=== PATIENT | female | born 1940 | race Caucasian/White ===

== ENCOUNTER 2019-07-23 12:04 | Inpatient (IN) | payer OTHER ==
--- NOTE | 2019-07-23 12:10 | PDOC ---
History of Present Illness - General Chief Complaint: Injury Stated Complaint: FELL Time Seen by Provider: 07/23/19 12:10 History Source: Patient Exam Limitations: No Limitations - History of Present Illness Initial Comments: 07/23/19 13:47 pt presents to the ED complaining of a three week history of progressively worsening l hip pain after fall three weeks ago. patient fell while at home-- sought no medical care at the time. Was able to ambulate after the injury, but has become progressively less able to ambulate secondary to pain. Today, she was unable to ambulate at all. Has been taking nothing for pain control. Has contusions to her face from the fall, but denies LOC. 07/23/19 13:49 Past History - Past Medical History Allergies/Adverse Reactions: Allergies Allergy/AdvReac Type Severity Reaction Status Date / Time No Known Allergies Allergy Verified 07/23/19 12:25 Home Medications: Ambulatory Orders Ursodiol [Actigal -] 300 mg PO BID 01/18/12 COPD: Yes GI Disorders: Yes - Immunization History Td Vaccination: No - Suicide/Smoking/Psychosocial Hx Smoking Status: Yes Smoking History: Former smoker Number of Cigarettes Smoked Daily: 0 Review of Systems - Review of Systems Able to Perform ROS?: Yes Is the patient limited Setswana proficient: No Constitutional: No: Symptoms Reported, See HPI, Chills, Diaphoresis, Fever, Loss of Appetite, Malaise, Night Sweats, Weakness, Weight Stable, Unintentional Wgt. Loss, Unexplained wgt Loss, Other HEENTM: No: Symptoms Reported, See HPI, Eye Pain, Blurred Vision, Tearing, Recent change in vision, Double Vision, Cataracts, Ear Pain, Ocular Prothesis, Ear Discharge, Nose Pain, Nose Congestion, Tinnitus, Nose Bleeding, Hearing Loss , Throat Pain, Throat Swelling, Mouth Pain, Dental Problems, Difficulty Swallowing, Mouth Swelling, Other Respiratory: No: Symptoms reported, See HPI, Cough, Orthopnea, Shortness of Breath, SOB with Exertion, SOB at Rest, Stridor, Wheezing, Productive cough, Hemoptysis, Other Cardiac (ROS): No: Symptoms Reported, See HPI, Chest Pain, Edema, Irregular Heart Rate, Lightheadedness, Palpitations, Syncope, Chest Tightness, Other ABD/GI: No: Symptoms Reported, See HPI, Abdominal Distended, Abd. Pain w/ defecation, Blood Streaked Bowels, Constipated, Diarrhea, Difficulty Swallowing , Nausea, Poor Appetite, Poor Fluid Intake, Rectal Bleeding, Vomiting, Indigestion, Abdominal cramping, Tarry Stools, Other Musculoskeletal: Yes: Back Pain, Joint Pain Integumentary: No: Symptoms Reported, See HPI, Bruising, Change in Color, Change in Hair/Nails, Dryness, Erythema, Flushing, Lesions, Lumps, Pallor, Pruritus, Rash, Sweating, Other Neurological: No: Symptoms reported, See HPI, Headache, Numbness, Paresthesia, Pre-Existing Deficit, Seizure, Tingling, Tremors, Weakness, Unsteady Gait, Ataxia, Dizziness, Other Psychiatric: No: Anxiety, Depression, Frequent Crying, Stressors, Sleep Pattern Change, Emotional Problems, Mood Swings, Change in Appetite, Other Endocrine: No: Symptoms Reported, See HPI, Excessive Sweating, Flushing, Intolerance to Cold, Intolerance to Heat, Increased Hunger, Increased Thirst, Increased Urine, Unexplained Weight Gain, Unexplained Weight Loss, Change in Weight, Other *Physical Exam - Physical Exam Comments: 07/23/19 13:53 gen: alert, NAD, cachectic HEENT: + healing ecchymosis on L side of face Neck: full ROM, no spinous process tenderness CV: rrr no m/r/g pulm: CTA b/l Abdomen: soft, non tender, non distended ext: no deformity or tenderness. Full ROM of LLE at hip, ankle and knee back; + scholiosis, + mild lumbar tenderness without deformity or step off ED Treatment Course - LABORATORY CBC & Chemistry Diagram: 07/23/19 13:30 07/23/19 13:30 Medical Decision Making - Medical Decision Making 07/23/19 13:56 Pt presents to the ED complaining of L hip and lower back pain after fall three weeks ago. Will check xrays to rule out occult fracture. IF negative and patient remains unable to walk, will check CT. Will admit for placement if patient is unable to ambulate. 07/23/19 17:31 patient is unable to ambulate on multiple attempts. Ct hip performed and is negative. Bilirubin is 4.8. Will check RUQ US. Will admit to medicine. *DC/Admit/Observation/Transfer Diagnosis at time of Disposition: Unable to walk Failure to thrive Qualifiers: Failure to thrive age range: in adult Qualified Code(s): R62.7 - Adult failure to thrive - Discharge Dispostion Condition at time of disposition: Good Decision to Admit order: Yes - Referrals Referrals: Himanshu Song MD [Primary Care Provider] - - Patient Instructions - Post Discharge Activity
[2019-07-23] MEDS ORDERED: morphine CARPU-JECT 2 MG/1 ML DISP.SYRIN IVPUSH ONE (12:53)
[2019-07-23] MEDS ORDERED: morphine SULFATE 4 MG/ML VIAL ONE (13:10)
[2019-07-23 13:40] LABS: HEMATOCRIT 33.7 % (32.4-45.2); HEMOGLOBIN 11.4 GM/dl (10.7-15.3); MCH 30.3 pg (25.7-33.7); MCHC 33.9 g/dl (32.0-36.0); MEAN CELL VOLUME 89.5 fl (80-96); MEAN PLT VOLUME 8.5 fl (7.5-11.1); PLATELET COUNT 302 K/MM3 (134-434); RBC 3.77 M/mm3 (3.60-5.2); RDW 14.9 % (11.6-15.6); WHITE BLOOD COUNT 7.8 K/mm3 (4.0-10.8)
[2019-07-23 13:47] LABS: ALBUMIN 2.5 g/dl (3.4-5.0); BILIRUBIN,TOTAL 4.8 mg/dl (0.2-1); CALCIUM 8.5 mg/dl (8.5-10); CREATININE 0.5 mg/dl (0.55-1.3); POTASSIUM 3.5 mmol/L (3.5-5.1); TOT PROT 6.4 g/dl (6.4-8.2)
[2019-07-23 14:21] LABS: ANISOCYTOSIS FEW
--- NOTE | 2019-07-23 21:10 | HP ---
CHIEF COMPLAINT: post fall weakness, difficultly with ambulation PCP: Dr. Loco HISTORY OF PRESENT ILLNESS: 79 year old female with PMHX of RA, COPD, primary biliary cholangitis, Essential tremors, Sjogrens syndrome arrived to ED with complain of progressive weakness, pain to left hip radiating to left lower extremity pain /. Pain and weakness started three weeks ago post fall. Patient fell at home did not seek medical care at time, now in ED due to progressive weakness and difficulty walking. Patient noted with contusion on left side of forehead, and orbital area. Patient denies headache, dizziness, sob/cp, denies change in vision. No acute N/v, heartburn, constipation, diarrhea noted. ER course was notable for: (1) in ED given Morphine x1 (2) lewis inserted, c/o retention, UA negative, follow urine culture (3) Head Ct, left hip, lumbar, left knee/hip all scans negative Recent Travel:no PAST MEDICAL HISTORY: RA of spine, COPD, Primary biliary cholangitis, Essential tremors, Sjogens syndrome PAST SURGICAL HISTORY: denies Social History: Smoking:quite 15-20 years ago Alcohol:no Drugs: no Family History: denies Allergies: No Known Allergies Allergy (Verified 07/23/19 12:25) HOME MEDICATIONS: Home Medications Medication Instructions Recorded Ursodiol [Actigal -] 300 mg PO BID 01/18/12 REVIEW OF SYSTEMS CONSTITUTIONAL: + generalized weakness, contusion on left side of forehead Absent: fever, chills, diaphoresis, loss of appetite, weight change HEENT:Absent: rhinorrhea, nasal congestion,throat swelling, difficulty swallowing, mouth swelling, ear pain, eye pain, visual changes CARDIOVASCULAR: Absent: chest pain, syncope, palpitations, irregular heart rate , lightheadedness, peripheral edema RESPIRATORY: Absent: cough, shortness of breath, dyspnea with exertion, orthopnea, wheezing, stridor, hemoptysis GASTROINTESTINAL:Absent: abdominal pain, abdominal distension, nausea, vomiting , diarrhea, constipation, melena, hematochezia GENITOURINARY: Absent: dysuria, frequency, urgency, hesitancy, hematuria, flank pain, genital pain MUSCULOSKELETAL:left hip pain radiating to left lower extremity SKIN: + contusion, bruising to left orbital and forehead Absent: rash, itching, pallor NEUROLOGIC: + generalized weakness Absent: headache, focal weakness or paresthesias, dizziness, mental status changes, bladder or bowel incontinence PSYCHIATRIC: Absent: anxiety, depression, suicidal or homicidal ideation, hallucinations. PHYSICAL EXAMINATION Vital Signs - 24 hr 07/23/19 07/23/19 12:06 18:30 Temperature 98.0 F 98.0 F Pulse Rate 75 Pulse Rate [ 75 Left Radial] Respiratory 18 20 Rate Blood Pressure 155/76 Blood Pressure 145/69 [Right Arm] O2 Sat by Pulse 97 98 Oximetry (%) GENERAL: Awake, alert, and fully oriented, in no acute distress. HEENT: NC/AT, EOMI, No JVD LUNGS: Breath sounds equal, clear to auscultation bilaterally. No wheezes, and no crackles. HEART: Regular rate and rhythm, normal S1 and S2 without murmur, rub or gallop. ABDOMEN: Soft, nontender, not distended, normoactive bowel sounds, no guarding, no rebound, no masses. MUSCULOSKELETAL: + scholiosis, + mild lumbar tenderness, LE limited, UE ROM intact NEUROLOGICAL: Cranial nerves II-XII intact. Normal speech. Normal gait. PSYCHIATRIC: Cooperative. Good eye contact. Appropriate mood and affect. SKIN: Warm, dry, normal turgor Laboratory Results - last 24 hr 07/23/19 07/23/19 07/23/19 13:30 13:30 13:30 WBC 7.8 RBC 3.77 Hgb 11.4 Hct 33.7 MCV 89.5 MCH 30.3 MCHC 33.9 RDW 14.9 Plt Count 302 MPV 8.5 Neutrophils % No Result Required. Neutrophils % (Manual) 90.0 H Lymphocytes % No Result Required. Lymphocytes % (Manual) 6.0 L Monocytes % (Manual) 4 Hypochromia Trace Anisocytosis Few Sodium 137 Potassium 3.5 Chloride 100 Carbon Dioxide 27 Anion Gap 10 BUN 18.0 Creatinine 0.5 L Est GFR (CKD-EPI)AfAm 106.69 Est GFR (CKD-EPI)NonAf 92.05 Random Glucose 95 Calcium 8.5 Total Bilirubin 4.8 H AST 84 H ALT 76 H Alkaline Phosphatase 895 H Creatine Kinase 43 Troponin I 0.03 Total Protein 6.4 Albumin 2.5 L Urine Color Urine Appearance Urine pH Urine Protein Urine Glucose (UA) Urine Ketones Urine Blood Urine Nitrite Urine Bilirubin Urine Urobilinogen Ur Leukocyte Esterase 07/23/19 18:20 WBC RBC Hgb Hct MCV MCH MCHC RDW Plt Count MPV Neutrophils % Neutrophils % (Manual) Lymphocytes % Lymphocytes % (Manual) Monocytes % (Manual) Hypochromia Anisocytosis Sodium Potassium Chloride Carbon Dioxide Anion Gap BUN Creatinine Est GFR (CKD-EPI)AfAm Est GFR (CKD-EPI)NonAf Random Glucose Calcium Total Bilirubin AST ALT Alkaline Phosphatase Creatine Kinase Troponin I Total Protein Albumin Urine Color Yellow Urine Appearance Clear Urine pH 7.0 Urine Protein Negative Urine Glucose (UA) Negative Urine Ketones Negative Urine Blood Negative Urine Nitrite Negative Urine Bilirubin 1+ H Urine Urobilinogen 4.0 e.u/dl H Ur Leukocyte Esterase Negative ASSESSMENT/PLAN: 79 year old female arrived to ED with complain of progressive weakness, pain to left hip radiating to left lower extremity (pain 7/10). Pain and weakness started three weeks ago post fall. #Post fall # scalp hematoma #Left hip pain #Failure to thrive # Elevated LFTs h/o of primary biliary cholangitis - Head CT: no acute bleed, scalp hematoma no acute fx - left hip/ pelvis no acute pathology - left knee no acute pathology - lumbar spine xr: degenerative changes, no acute fx - CT left hip: moderate arthritis no fx - follow up PT/OT - Dietary follow up - elevated LFTs, bilirubin likely due to primary biliary cholangitis currently on ursodiol 300mg BID - follow up Abd US official read - trend LFTs in Am - consider rehab placement for continues strengthen and ambulation # RA - pain managment # COPD - monitor spo2 if needed give o2 PRN Problem List - Problem (1) Status post fall Code(s): Z91.81 - HISTORY OF FALLING (2) Left hip pain Code(s): M25.552 - PAIN IN LEFT HIP (3) Unable to walk Code(s): R26.2 - DIFFICULTY IN WALKING, NOT ELSEWHERE CLASSIFIED (4) Hematoma of scalp Code(s): S00.03XA - CONTUSION OF SCALP, INITIAL ENCOUNTER (5) Failure to thrive Code(s): OPQ7553 - Qualifiers: Failure to thrive age range: in adult Qualified Code(s): R62.7 - Adult failure to thrive (6) COPD (chronic obstructive pulmonary disease) Code(s): J44.9 - CHRONIC OBSTRUCTIVE PULMONARY DISEASE, UNSPECIFIED (7) Rheumatoid arteritis Code(s): M05.20 - RHEUMATOID VASCULITIS WITH RHEUMATOID ARTHRITIS OF [facility] (8) Essential tremor Code(s): G25.0 - ESSENTIAL TREMOR (9) Primary biliary cholangitis Code(s): K74.3 - PRIMARY BILIARY CIRRHOSIS (10) Sjogrens syndrome Code(s): M35.00 - SICCA SYNDROME, UNSPECIFIED Visit type - Emergency Visit Emergency Visit: Yes ED Registration Date: 07/23/19 Care time: The patient presented to the Emergency Department on the above date and was hospitalized for further evaluation of their emergent condition. - New Patient This patient is new to me today: Yes Date on this admission: 07/23/19 - Critical Care Critical Care patient: No
[2019-07-23] MEDS: HEPARIN NA (PORCINE) 5,000 UNITS/ML 1ML VIAL SQ SCH (22:16)
[2019-07-23] MEDS: URSODIOL 300 MG CAPSULE PO SCH (22:18)
--- NOTE | 2019-07-24 08:53 | PN ---
Physical Exam: SUBJECTIVE: Patient seen and examined. PT at bedside with [employer] school best friends. State pain is her hamstring and the lateral side of her left thigh. Spoke with patient about Advanced Directive. Pt stated she would do when her sons is with her tomorrow, but for now she wants to be a full code. OBJECTIVE: GENERAL: Awake, alert, and fully oriented, in no acute distress. HEENT: NC/AT, EOMI, No JVD LUNGS: Breath sounds equal, clear to auscultation bilaterally. No wheezes, and no crackles. HEART: Regular rate and rhythm, normal S1 and S2 ABDOMEN: Soft, nontender, not distended, normoactive bowel sounds, no guarding, no rebound, no masses. : East in place[place] MUSCULOSKELETAL: + scholiosis, + mild lumbar tenderness, LE limited, UE ROM intact NEUROLOGICAL: Alert and Oriented. PSYCHIATRIC: Cooperative. Good eye contact. Appropriate mood and affect. SKIN: Warm, dry, normal turgor Vital Signs Period Temp Pulse Resp BP Sys/Og Pulse Ox Last 24 Hr 97.9 F-98.0 F 70-79 17-20 109-155/51-76 95-100 Laboratory Results - last 24 hr 07/23/19 07/23/19 07/23/19 13:30 13:30 13:30 WBC 7.8 RBC 3.77 Hgb 11.4 Hct 33.7 MCV 89.5 MCH 30.3 MCHC 33.9 RDW 14.9 Plt Count 302 MPV 8.5 Neutrophils % No Result Required. Neutrophils % (Manual) 90.0 H Lymphocytes % No Result Required. Lymphocytes % (Manual) 6.0 L Monocytes % (Manual) 4 Hypochromia Trace Anisocytosis Few Sodium 137 Potassium 3.5 Chloride 100 Carbon Dioxide 27 Anion Gap 10 BUN 18.0 Creatinine 0.5 L Est GFR (CKD-EPI)AfAm 106.69 Est GFR (CKD-EPI)NonAf 92.05 Random Glucose 95 Calcium 8.5 Total Bilirubin 4.8 H AST 84 H ALT 76 H Alkaline Phosphatase 895 H Creatine Kinase 43 Troponin I 0.03 Total Protein 6.4 Albumin 2.5 L Urine Color Urine Appearance Urine pH Urine Protein Urine Glucose (UA) Urine Ketones Urine Blood Urine Nitrite Urine Bilirubin Urine Urobilinogen Ur Leukocyte Esterase 07/23/19 18:20 WBC RBC Hgb Hct MCV MCH MCHC RDW Plt Count MPV Neutrophils % Neutrophils % (Manual) Lymphocytes % Lymphocytes % (Manual) Monocytes % (Manual) Hypochromia Anisocytosis Sodium Potassium Chloride Carbon Dioxide Anion Gap BUN Creatinine Est GFR (CKD-EPI)AfAm Est GFR (CKD-EPI)NonAf Random Glucose Calcium Total Bilirubin AST ALT Alkaline Phosphatase Creatine Kinase Troponin I Total Protein Albumin Urine Color Yellow Urine Appearance Clear Urine pH 7.0 Urine Protein Negative Urine Glucose (UA) Negative Urine Ketones Negative Urine Blood Negative Urine Nitrite Negative Urine Bilirubin 1+ H Urine Urobilinogen 4.0 e.u/dl H Ur Leukocyte Esterase Negative Active Medications Generic Name Dose Route Start Last Admin Trade Name Freq PRN Reason Stop Dose Admin Acetaminophen 650 mg 07/23/19 21:01 Tylenol - PO Q4H PRN PAIN Heparin Sodium (Porcine) 5,000 unit 07/23/19 22:00 07/23/19 22:16 Heparin - SQ 5,000 unit BID REANNA Administration Ursodiol 300 mg 07/23/19 22:00 07/23/19 22:18 Actigal - PO 300 mg BID REANNA Administration ASSESSMENT/PLAN 79 year old female arrived to ED with complain of progressive weakness, pain to left hip radiating to left lower extremity (pain 7/10). Pain and weakness started three weeks ago post fall. Left Hamstring/thigh Pain Failure to thrive Elevated LFTs H/O of primary biliary cholangitis Post fall /Scalp hematoma Head CT: no acute bleed, scalp hematoma no acute fx - left hip/ pelvis no acute pathology - left knee no acute pathology - lumbar spine xr: degenerative changes, no acute fx - CT left hip: moderate arthritis no fx - follow up PT/OT - Dietary follow up - elevated LFTs, bilirubin likely due to primary biliary cholangitis currently on ursodiol 300mg BID - follow up Abd US official read - trend LFTs in - consider rehab placement RA - pain managment COPD -monitor spo2 if needed give o2 PRN Visit type - Emergency Visit Emergency Visit: Yes ED Registration Date: 07/23/19 Care time: The patient presented to the Emergency Department on the above date and was hospitalized for further evaluation of their emergent condition. - New Patient This patient is new to me today: Yes Date on this admission: 07/24/19 - Critical Care Critical Care patient: No
[2019-07-24 09:30] LABS: HEMATOCRIT 31.2 % (32.4-45.2); HEMOGLOBIN 10.6 GM/dl (10.7-15.3); MCH 29.9 pg (25.7-33.7); MEAN CELL VOLUME 88.1 fl (80-96); MEAN PLT VOLUME 8.7 fl (7.5-11.1); PLATELET COUNT 282 K/MM3 (134-434); RBC 3.54 M/mm3 (3.60-5.2); RDW 14.3 % (11.6-15.6); WHITE BLOOD COUNT 7.8 K/mm3 (4.0-10.8)
[2019-07-24 09:42] LABS: ALBUMIN 2.3 g/dl (3.4-5.0); BILIRUBIN,TOTAL 3.7 mg/dl (0.2-1); CREATININE 0.6 mg/dl (0.55-1.3); POTASSIUM 3.4 mmol/L (3.5-5.1); TOT PROT 5.6 g/dl (6.4-8.2)
[2019-07-24] MEDS: ACETAMINOPHEN 325 MG TABLET (FP) PO PRN (09:45)
[2019-07-24] MEDS: URSODIOL 300 MG CAPSULE PO SCH ×2 (09:45→21:54)
[2019-07-24] MEDS: HEPARIN NA (PORCINE) 5,000 UNITS/ML 1ML VIAL SQ SCH ×2 (09:46→21:54)
[2019-07-24 14:54] VITALS: BMI 13.4
--- NOTE | 2019-07-24 17:12 | EKG ---
Test Reason : Blood Pressure : / mmHG Vent. Rate : 070 BPM Atrial Rate : 070 BPM P-R Int : 176 ms QRS Dur : 080 ms QT Int : 452 ms P-R-T Axes : 082 -22 077 degrees QTc Int : 488 ms NORMAL SINUS RHYTHM LEFT ATRIAL ENLARGEMENT POSSIBLE ANTERIOR INFARCT , AGE UNDETERMINED ABNORMAL ECG NO PREVIOUS ECGS AVAILABLE Confirmed by CHRIS BYRNE MD ([id number]) on 07/24/2019 5:12:27 PM Referred By: DR TORRES Confirmed By:CHRIS BYRNE MD
[2019-07-25] MEDS: ACETAMINOPHEN 325 MG TABLET (FP) PO PRN (01:02)
[2019-07-25] MEDS ORDERED: PT OWN MED DRAWER 7, Y5N ONE ×2 (09:35→20:55)
[2019-07-25] MEDS: HEPARIN NA (PORCINE) 5,000 UNITS/ML 1ML VIAL SQ SCH ×2 (09:40→21:28)
[2019-07-25] MEDS: URSODIOL 300 MG CAPSULE PO SCH ×2 (09:40→21:28)
[2019-07-25] MEDS: POLYETHYLENE GLYCOL 3350 119 GM BTL PO SCH ×2 (10:30→21:29)
[2019-07-25 10:40] LABS: HEMATOCRIT 35.2 % (32.4-45.2); HEMOGLOBIN 11.8 GM/dl (10.7-15.3); MCH 29.9 pg (25.7-33.7); MCHC 33.5 g/dl (32.0-36.0); MEAN CELL VOLUME 89.4 fl (80-96); MEAN PLT VOLUME 8.4 fl (7.5-11.1); PLATELET COUNT 357 K/MM3 (134-434); RBC 3.93 M/mm3 (3.60-5.2); RDW 14.8 % (11.6-15.6); WHITE BLOOD COUNT 8.7 K/mm3 (4.0-10.8)
[2019-07-25 10:51] LABS: ALBUMIN 2.4 g/dl (3.4-5.0); BILIRUBIN,DIRECT 2.5 mg/dL (0.0-0.2); BILIRUBIN,TOTAL 4.1 mg/dl (0.2-1); CALCIUM 8.3 mg/dl (8.5-10); CREATININE 0.7 mg/dl (0.55-1.3); POTASSIUM 3.1 mmol/L (3.5-5.1); TOT PROT 6.1 g/dl (6.4-8.2)
[2019-07-25 11:29] LABS: PLATELET ESTIMATE ADEQUATE
[2019-07-25] MEDS: POTASSIUM CHLORIDE TABS 20 MEQ TABLET.ER (FP) PO SCH ×2 (12:24→17:54)
--- NOTE | 2019-07-25 16:28 | PN ---
Physical Exam: SUBJECTIVE: Patient seen and examined oob to chair. Son and friend present. OBJECTIVE: Vital Signs Period Temp Pulse Resp BP Sys/Og Pulse Ox Last 24 Hr 97.4 F-98.2 F 62-88 17- 107-138/51-60 95-99 GENERAL: The patient is awake, alert, and fully oriented, in no acute distress. HEAD: Resolving ecchymosis left forehead LUNGS: Breath sounds equal, clear to auscultation bilaterally, no wheezes, no crackles, no accessory muscle use. HEART: Regular rate and rhythm, S1, S2 ABDOMEN: Soft, nontender, nondistended EXTREMITIES: 2+ pulses, warm, well-perfused, no edema. NEUROLOGICAL: Cranial nerves II through XII grossly intact. Normal speech, gait not observed. Laboratory Results - last 24 hr 07/25/19 07/25/19 10:15 10:15 WBC 8.7 RBC 3.93 Hgb 11.8 Hct 35.2 MCV 89.4 MCH 29.9 MCHC 33.5 RDW 14.8 Plt Count 357 MPV 8.4 Neutrophils % No Result Required. Neutrophils % (Manual) 78.0 Band Neutrophils % 1.0 Lymphocytes % No Result Required. Lymphocytes % (Manual) 12.0 Monocytes % (Manual) 7 Eosinophils % (Manual) 2.0 Platelet Estimate Adequate Sodium 138 Potassium 3.1 L Chloride 101 Carbon Dioxide 29 Anion Gap 8 BUN 19.0 H Creatinine 0.7 Est GFR (CKD-EPI)AfAm 95.51 Est GFR (CKD-EPI)NonAf 82.41 Random Glucose 101 Calcium 8.3 L Magnesium 2.0 Total Bilirubin 4.1 H Direct Bilirubin 2.5 H AST 95 H ALT 80 H Alkaline Phosphatase 852 H D Total Protein 6.1 L Albumin 2.4 L Active Medications Generic Name Dose Route Start Last Admin Trade Name Freq PRN Reason Stop Dose Admin Acetaminophen 650 mg 07/23/19 21:01 07/25/19 01:02 Tylenol - PO 650 mg Q4H PRN Administration PAIN Heparin Sodium (Porcine) 5,000 unit 07/23/19 22:00 07/25/19 09:40 Heparin - SQ 5,000 unit BID REANNA Administration Polyethylene Glycol 17 gm 07/25/19 10:15 07/25/19 10:30 Miralax (For Daily Use) - PO 17 gm BID REANNA Administration Potassium Chloride 40 meq 07/25/19 11:45 07/25/19 12:24 K-Dur - PO 07/25/19 17:46 40 meq Q6H REANNA Administration Senna/Docusate Sodium 2 tablet 07/25/19 22:00 Pericolace - PO 07/26/19 10:04 HS REANNA Ursodiol 300 mg 07/23/19 22:00 07/25/19 09:40 Actigal - PO 300 mg BID REANNA Administration ASSESSMENT/PLAN 79 year-old female with a PMH significant for primary biliary cholangitis, essential tremors, Sjogrens, RA, and COPD. Admitted s/p fall x 3 weeks ago with left hip pain and progressive weakness. Left hip pain s/p fall x 3 weeks --all imaging negative for fracture/acute process --pain presently well-managed with Tylenol Primary biliary cholangitis Dilated CBD Dilated pancreatic duct --follows with Dr. Ramos Loja, [facility] [place], [phone]; FAX [phone] --discussed case with Dr. Loja; bilirubin and transaminase levels are at about same levels as seen on last bloodwork at his office 06/08/19 --US here shows CBD 11mm; per Dr. Loja, most recent imaging at [facility] was 10cm , no significant change --US here shows dilated pancreatic duct; per Dr. Loja, this is a new finding ; would be helpful to get MRCP done during this hospitalization, but if not possible, can be done as an outpatient --discussed MRCP with patient, she absolutely refuses to have a closed MRI --patient will need to follow up with Dr. Loja as outpatient --continue ursodiol, hydroxyzine, cholestyramine Hypokalemia --repleted Essential tremors --on no medication Sjogrens --not on meds Rheumatoid arthritis --not on meds COPD --stable, not on meds BMI 13.5 FEN Fluids: PO intake adequate Electrolytes: replete as indicated Nutrition: regular diet; Ensure Enlive BID DVT prophylaxis: subq heparin Physical therapy Dispo: continues to require inpatient care. Full code. Plan to go to short-term rehab tomorrow. Visit type - Emergency Visit Emergency Visit: Yes ED Registration Date: 07/23/19 Care time: The patient presented to the Emergency Department on the above date and was hospitalized for further evaluation of their emergent condition. - New Patient This patient is new to me today: Yes Date on this admission: 07/25/19 - Critical Care Critical Care patient: No
[2019-07-25] MEDS: ATORVASTATIN CA 10 MG TABLET (FP) PO SCH (21:27)
[2019-07-25] MEDS: hydrOXYzine HCL 25 MG TABLET (FP) PO SCH (21:27)
[2019-07-25] MEDS: clonazePAM 0.5 MG TABLET PO PRN (21:33)
[2019-07-25] MEDS ORDERED: CHOLESTYRAMINE/SUCROSE 4 GM PACKET PO SCH (22:00)
[2019-07-25] MEDS ORDERED: SENNOSIDES/DOCUSATE COMBO (SENNA PLUS) TABLET (UD) PO SCH (22:00)
[2019-07-26] MEDS: CHOLESTYRAMINE/ASPARTAME 4 GM PACKET PO SCH ×3 (00:57→21:44)
--- NOTE | 2019-07-26 07:35 | DS ---
Physical Exam: SUBJECTIVE: Patient seen and examined oob to chair. Good appetite. Voices no complaints. Willing to try closed MRI today. OBJECTIVE: Vital Signs Period Temp Pulse Resp BP Sys/Og Pulse Ox Last 24 Hr 97.8 F-98.2 F 67-88 17-18 108-141/47-61 97-98 PHYSICAL EXAM GENERAL: The patient is awake, alert, and fully oriented, in no acute distress. HEAD: Resolving ecchymosis left forehead LUNGS: CTA HEART: Regular rate and rhythm, S1, S2 ABDOMEN: Tympanic, protuberant EXTREMITIES: 2+ pulses, warm, well-perfused, no edema. NEUROLOGICAL: Cranial nerves II through XII grossly intact. Normal speech, gait not observed. LABS Laboratory Results - last 24 hr 07/25/19 07/25/19 10:15 10:15 WBC 8.7 RBC 3.93 Hgb 11.8 Hct 35.2 MCV 89.4 MCH 29.9 MCHC 33.5 RDW 14.8 Plt Count 357 MPV 8.4 Neutrophils % No Result Required. Neutrophils % (Manual) 78.0 Band Neutrophils % 1.0 Lymphocytes % No Result Required. Lymphocytes % (Manual) 12.0 Monocytes % (Manual) 7 Eosinophils % (Manual) 2.0 Platelet Estimate Adequate Sodium 138 Potassium 3.1 L Chloride 101 Carbon Dioxide 29 Anion Gap 8 BUN 19.0 H Creatinine 0.7 Est GFR (CKD-EPI)AfAm 95.51 Est GFR (CKD-EPI)NonAf 82.41 Random Glucose 101 Calcium 8.3 L Magnesium 2.0 Total Bilirubin 4.1 H Direct Bilirubin 2.5 H AST 95 H ALT 80 H Alkaline Phosphatase 852 H D Total Protein 6.1 L Albumin 2.4 L HOSPITAL COURSE: Date of Admission:07/23/19 Date of Discharge: 07/26/19 Pre hospital course 79 year-old female with PMH significant for primary biliary cholangitis, essential tremors, Sjogrens, RA, and COPD. Patient came to the ED with complaints of progressive weakness, and pain to left hip radiating to left lower extremity. Pain and weakness started three weeks ago post fall. Patient fell at home did not seek medical care at time, now in ED due to progressive weakness and difficulty walking. Patient noted with contusion on left side of forehead, and orbital area. Patient denies headache, dizziness, sob/cp, denies change in vision. No acute N/v, heartburn, constipation, diarrhea noted. ER course (1) in ED given Morphine x1 (2) lewis inserted, c/o retention, UA negative, follow urine culture (3) Head Ct, left hip, lumbar, left knee/hip all scans negative Subsequent hospital course Left hip pain s/p fall x 3 weeks --all imaging negative for fracture/acute process --pain well-managed with Tylenol Primary biliary cholangitis Dilated CBD Dilated pancreatic duct Ascites --follows with Dr. Ramos Loja, [facility], [phone]; FAX [phone] --discussed case with Dr. Loja; bilirubin and transaminase levels are at about same levels as seen on last bloodwork at his office 06/08/19 --US here shows CBD 11mm; per Dr. Loja, most recent imaging at [facility] was 10cm , no significant change --US here shows dilated pancreatic duct; per Dr. Loja, this is a new finding ; would be helpful to get MRCP done during this hospitalization, but if not possible, can be done as an outpatient --patient agreed to MRCP, done pending dictation --patient will need to follow up with Dr. Loja as outpatient --continue ursodiol, hydroxyzine, cholestyramine Essential tremors --on no medication Sjogrens --not on meds Rheumatoid arthritis --not on meds COPD --stable, not on meds Discharge Summary Reason For Visit: FAILURE TO THIRVE Current Active Problems COPD (chronic obstructive pulmonary disease) (Acute) Essential tremor (Acute) Failure to thrive (Acute) Hematoma of scalp (Acute) Left hip pain (Acute) Primary biliary cholangitis (Acute) Rheumatoid arteritis (Acute) Sjogrens syndrome (Acute) Status post fall (Acute) Unable to walk (Acute) Condition: Improved - Instructions Referrals: Himanshu Song MD [Primary Care Provider] - Disposition: [facility] - Home Medications Comprehensive Discharge Medication List: Ambulatory Orders Ursodiol [Actigal -] 300 mg PO BID 01/18/12 Alendronate Sodium [Binosto] 70 mg PO 07/25/19 Atorvastatin Ca [Lipitor] 10 mg PO HS 07/25/19 Calcium 250Mg/Vit-D 125 Units [Oscal 250 mg+D -] 1,250 combo PO DAILY 07/25/19 Cholestyramine (with Sugar) [Questran Packet] 4 gm PO BID 07/25/19 Fluocinolone/Shower Cap [Fluocinolone 0.01% Scalp Oil] 0.01 TID PRN 07/25/19 Naltrexone HCl 50 mg PO DAILY 07/25/19 Sertraline HCl [Zoloft -] 12.5 mg PO DAILY 07/25/19 Triamcinolone 0.1% Ointment [Aristocort 0.1% Ointment -] 1 applic TP BID clonazePAM [Klonopin -] 0.5 mg PO BID PRN 07/25/19 hydrOXYzine HCL [Atarax -] 25 mg PO BID 07/25/19
[2019-07-26 08:26] LABS: HEMATOCRIT 31.9 % (32.4-45.2); HEMOGLOBIN 10.6 GM/dl (10.7-15.3); MCH 29.4 pg (25.7-33.7); MCHC 33.2 g/dl (32.0-36.0); MEAN CELL VOLUME 88.6 fl (80-96); MEAN PLT VOLUME 8.8 fl (7.5-11.1); PLATELET COUNT 287 K/MM3 (134-434); RDW 14.9 % (11.6-15.6); WHITE BLOOD COUNT 7.7 K/mm3 (4.0-10.8)
[2019-07-26] MEDS ORDERED: PT OWN MED DRAWER 7, Y5N ONE ×3 (08:43→20:59)
[2019-07-26] MEDS: URSODIOL 300 MG CAPSULE PO SCH ×2 (08:45→21:40)
[2019-07-26 08:59] LABS: ALBUMIN 2.3 g/dl (3.4-5.0); BILIRUBIN,DIRECT 2.3 mg/dL (0.0-0.2); BILIRUBIN,TOTAL 3.7 mg/dl (0.2-1); CALCIUM 8.2 mg/dl (8.5-10); CREATININE 0.7 mg/dl (0.55-1.3); POTASSIUM 3.7 mmol/L (3.5-5.1); TOT PROT 5.7 g/dl (6.4-8.2)
[2019-07-26] MEDS: hydrOXYzine HCL 25 MG TABLET (FP) PO SCH ×2 (09:35→21:40)
[2019-07-26] MEDS: POLYETHYLENE GLYCOL 3350 119 GM BTL PO SCH ×3 (09:35→21:44)
[2019-07-26] MEDS: HEPARIN NA (PORCINE) 5,000 UNITS/ML 1ML VIAL SQ SCH ×2 (09:35→21:39)
[2019-07-26] MEDS ORDERED: LORazepam 0.5 MG TABLET PO ONE (09:45)
[2019-07-26] MEDS ORDERED: CALCIUM 250MG/VIT-D 125 UNITS 1 COMBO TABLET PO SCH (10:00)
[2019-07-26] MEDS: SERTRALINE HCL 25 MG TABLET (FP) PO SCH (10:37)
--- NOTE | 2019-07-26 15:44 | PN ---
Physical Exam: SUBJECTIVE: Patient seen and examined oob to chair. Good appetite. Voices no complaints. Willing to try closed MRI today. OBJECTIVE: Vital Signs Period Temp Pulse Resp BP Sys/Og Pulse Ox Last 24 Hr 97.7 F-98.2 F 64-83 16-18 108-141/47-61 97-98 GENERAL: The patient is awake, alert, and fully oriented, in no acute distress. HEAD: Resolving ecchymosis left forehead LUNGS: Breath sounds equal, clear to auscultation bilaterally, no wheezes, no crackles, no accessory muscle use. HEART: Regular rate and rhythm, S1, S2 ABDOMEN: Firm distended, tympanic EXTREMITIES: 2+ pulses, warm, well-perfused, no edema. NEUROLOGICAL: Cranial nerves II through XII grossly intact. Normal speech, gait not observed. Laboratory Results - last 24 hr 07/26/19 07/26/19 07:06 07:06 WBC 7.7 RBC 3.60 Hgb 10.6 L Hct 31.9 L MCV 88.6 MCH 29.4 MCHC 33.2 RDW 14.9 Plt Count 287 MPV 8.8 Neutrophils % No Result Required. Neutrophils % (Manual) 76.0 Band Neutrophils % 3.0 Lymphocytes % No Result Required. Lymphocytes % (Manual) 14.0 Monocytes % (Manual) 4 Eosinophils % (Manual) 3.0 Platelet Comment A Sodium 135 L Potassium 3.7 Chloride 103 Carbon Dioxide 26 Anion Gap 6 L BUN 21.0 H Creatinine 0.7 Est GFR (CKD-EPI)AfAm 95.51 Est GFR (CKD-EPI)NonAf 82.41 Random Glucose 101 Calcium 8.2 L Magnesium 2.0 Total Bilirubin 3.7 H Direct Bilirubin 2.3 H AST 111 H ALT 89 H Alkaline Phosphatase 875 H D Total Protein 5.7 L Albumin 2.3 L Active Medications Generic Name Dose Route Start Last Admin Trade Name Freq PRN Reason Stop Dose Admin Acetaminophen 650 mg 07/23/19 21:01 07/25/19 01:02 Tylenol - PO 650 mg Q4H PRN Administration PAIN Atorvastatin Calcium 10 mg 07/25/19 22:00 07/25/19 21:27 Lipitor - PO 10 mg HS REANNA Administration Cholestyramine Resin 4 gm 07/25/19 22:00 07/26/19 00:57 Questran Light Packet - PO Not Given BID REANNA Clonazepam 0.5 mg 07/25/19 18:47 07/25/19 21:33 Klonopin - PO 0.5 mg BID PRN Administration TREMORS Heparin Sodium (Porcine) 5,000 unit 07/23/19 22:00 07/26/19 09:35 Heparin - SQ 5,000 unit BID REANNA Administration Hydroxyzine HCl 25 mg 07/25/19 22:00 07/26/19 09:35 Atarax - PO 25 mg BID REANNA Administration Polyethylene Glycol 17 gm 07/25/19 10:15 07/26/19 09:35 Miralax (For Daily Use) - PO 17 gm BID REANNA Administration Sertraline HCl 12.5 mg 07/26/19 10:00 07/26/19 10:37 Zoloft - PO 12.5 mg DAILY REANNA Administration Ursodiol 300 mg 07/25/19 20:00 07/26/19 08:45 Actigal - PO 300 mg BID@0800,2000 REANNA Administration ASSESSMENT/PLAN 79 year-old female with a PMH significant for primary biliary cholangitis, essential tremors, Sjogrens, RA, and COPD. Admitted s/p fall x 3 weeks ago with left hip pain and progressive weakness. Left hip pain s/p fall x 3 weeks --all imaging negative for fracture/acute process --pain presently well-managed with Tylenol Primary biliary cholangitis Dilated CBD Dilated pancreatic duct --follows with Dr. Ramos Loja, [facility], ; FAX [phone] --discussed case with Dr. Loja; bilirubin and transaminase levels are at about same levels as seen on last bloodwork at his office 06/08/19 --US here shows CBD 11mm; per Dr. Loja, most recent imaging at [facility] was 10cm , no significant change --US here shows dilated pancreatic duct; per Dr. Loja, this is a new finding --MRCP today: pancreatic duct minimally dilated 3mm in the body and 2mm in the tail; proximal CBC dilated 1.1cm, mid and distal CBD normal caliber for stated age; faxed to Dr. Loja --continue ursodiol, hydroxyzine, cholestyramine Urinary retention --MRCP shows massively distended bladder --place lewis --strict I&Os --start Flomax --urology consult --renal function stable, monitor closely Retained stool --continue miralax; add pericolace; bisocodyl suppository --enema if needed Hypokalemia --repleted Essential tremors --on no medication Sjogrens --not on meds Rheumatoid arthritis --not on meds COPD --stable, not on meds FEN Fluids: PO intake adequate Electrolytes: replete as indicated Nutrition: regular diet; Ensure Enlive BID DVT prophylaxis: subq heparin Physical therapy Dispo: continues to require inpatient care. Full code. Visit type - Emergency Visit Emergency Visit: Yes ED Registration Date: 07/23/19 Care time: The patient presented to the Emergency Department on the above date and was hospitalized for further evaluation of their emergent condition. - New Patient This patient is new to me today: No - Critical Care Critical Care patient: No
[2019-07-26] MEDS ORDERED: BISACODYL 10 MG SUPP.RECT PR ONE (15:50)
[2019-07-26] MEDS ORDERED: SODIUM PHOSPHATE/NA BIPHOS 133 ML ENEMA PR ONE (15:52)
[2019-07-26 16:54] LABS: EPITHELIAL CELLS FEW /hpf
[2019-07-26] MEDS: TAMSULOSIN HCL 0.4 MG CAP PO SCH (17:06)
[2019-07-26] MEDS: SENNOSIDES/DOCUSATE COMBO (SENNA PLUS) TABLET (UD) PO SCH (21:40)
[2019-07-26] MEDS: clonazePAM 0.5 MG TABLET PO PRN (21:40)
[2019-07-26] MEDS: ATORVASTATIN CA 10 MG TABLET (FP) PO SCH (21:40)
[2019-07-27 07:36] LABS: HEMOGLOBIN 10.6 GM/dl (10.7-15.3); MEAN PLT VOLUME 8.4 fl (7.5-11.1); WHITE BLOOD COUNT 7.9 K/mm3 (4.0-10.8)
[2019-07-27 07:49] LABS: ALBUMIN 2.4 g/dl (3.4-5.0); BILIRUBIN,TOTAL 4.3 mg/dl (0.2-1); CALCIUM 8.2 mg/dl (8.5-10); CREATININE 0.6 mg/dl (0.55-1.3); HEMATOCRIT 30.8 % (32.4-45.2); MAGNESIUM 2.1 mg/dL (1.8-2.4); MCH 30.5 pg (25.7-33.7); MCHC 34.4 g/dl (32.0-36.0); MEAN CELL VOLUME 88.6 fl (80-96); PLATELET COUNT 266 K/MM3 (134-434); POTASSIUM 3.3 mmol/L (3.5-5.1); RBC 3.48 M/mm3 (3.60-5.2); RDW 15.1 % (11.6-15.6); TOT PROT 6.1 g/dl (6.4-8.2)
[2019-07-27 08:44] LABS: PLATELET ESTIMATE ADEQUATE
[2019-07-27] MEDS ORDERED: PT OWN MED DRAWER 7, Y5N ONE ×2 (09:13→20:54)
[2019-07-27] MEDS: URSODIOL 300 MG CAPSULE PO SCH ×2 (09:39→21:12)
[2019-07-27] MEDS: SERTRALINE HCL 25 MG TABLET (FP) PO SCH (09:40)
[2019-07-27] MEDS: CHOLESTYRAMINE/ASPARTAME 4 GM PACKET PO SCH ×2 (09:41→21:11)
[2019-07-27] MEDS: TAMSULOSIN HCL 0.4 MG CAP PO SCH (09:41)
[2019-07-27] MEDS: hydrOXYzine HCL 25 MG TABLET (FP) PO SCH ×2 (09:41→21:12)
[2019-07-27] MEDS: HEPARIN NA (PORCINE) 5,000 UNITS/ML 1ML VIAL SQ SCH ×2 (09:43→21:12)
[2019-07-27] MEDS: POLYETHYLENE GLYCOL 3350 119 GM BTL PO SCH ×2 (09:43→21:11)
--- NOTE | 2019-07-27 11:59 | PN ---
Physical Exam: SUBJECTIVE: Patient seen and examined oob to chair. Son present. OBJECTIVE: Vital Signs Period Temp Pulse Resp BP Sys/Og Pulse Ox Last 24 Hr 97.7 F-98.7 F 64-89 16-18 109-131/43-61 96-98 GENERAL: The patient is awake, alert, and fully oriented, in no acute distress. HEAD: Resolving ecchymosis left forehead LUNGS: Breath sounds equal, clear to auscultation bilaterally, no wheezes, no crackles, no accessory muscle use. HEART: Regular rate and rhythm, S1, S2 ABDOMEN: Soft, not tender, mildly distended EXTREMITIES: 2+ pulses, warm, well-perfused, no edema. NEUROLOGICAL: Cranial nerves II through XII grossly intact. Normal speech, gait not observed. Laboratory Results - last 24 hr 07/26/19 07/27/19 07/27/19 16:20 07:20 07:20 WBC 7.9 RBC 3.48 L Hgb 10.6 L Hct 30.8 L MCV 88.6 MCH 30.5 MCHC 34.4 RDW 15.1 Plt Count 266 MPV 8.4 Neutrophils % No Result Required. Neutrophils % (Manual) 86.0 H Band Neutrophils % 2.0 Lymphocytes % No Result Required. Lymphocytes % (Manual) 9.0 Monocytes % (Manual) 2 L Eosinophils % (Manual) 1.0 Platelet Estimate Adequate Sodium 136 Potassium 3.3 L Chloride 102 Carbon Dioxide 25 Anion Gap 9 BUN 22.0 H Creatinine 0.6 Est GFR (CKD-EPI)AfAm 100.48 Est GFR (CKD-EPI)NonAf 86.69 Random Glucose 95 Calcium 8.2 L Magnesium 2.1 Total Bilirubin 4.3 H AST 95 H ALT 87 H Alkaline Phosphatase 937 H D Total Protein 6.1 L Albumin 2.4 L Urine Color Dark Urine Appearance Turbid Urine pH 7.0 Urine Protein Negative Urine Glucose (UA) Negative Urine Ketones Negative Urine Blood 1+ H Urine Nitrite Negative Urine Bilirubin 2+ H Urine Urobilinogen >=8.0 e.u./dl H Ur Leukocyte Esterase Trace H Urine RBC 2-5 Urine WBC 2-5 Ur Transition Epith Cell Few Urine Bacteria Many Active Medications Generic Name Dose Route Start Last Admin Trade Name Freq PRN Reason Stop Dose Admin Acetaminophen 650 mg 07/23/19 21:01 07/25/19 01:02 Tylenol - PO 650 mg Q4H PRN Administration PAIN Atorvastatin Calcium 10 mg 07/25/19 22:00 07/26/19 21:40 Lipitor - PO 10 mg HS REANNA Administration Cholestyramine Resin 4 gm 07/25/19 22:00 07/27/19 09:41 Questran Light Packet - PO 4 gm BID REANNA Administration Clonazepam 0.5 mg 07/25/19 18:47 07/26/19 21:40 Klonopin - PO 0.5 mg BID PRN Administration TREMORS Heparin Sodium (Porcine) 5,000 unit 07/23/19 22:00 07/27/19 09:43 Heparin - SQ 5,000 unit BID REANNA Administration Hydroxyzine HCl 25 mg 07/25/19 22:00 07/27/19 09:41 Atarax - PO 25 mg BID REANNA Administration Polyethylene Glycol 17 gm 07/25/19 10:15 07/27/19 09:43 Miralax (For Daily Use) - PO 17 gm BID REANNA Administration Senna/Docusate Sodium 1 tablet 07/26/19 22:00 07/26/19 21:40 Pericolace - PO 1 tablet HS REANNA Administration Sertraline HCl 12.5 mg 07/26/19 10:00 07/27/19 09:40 Zoloft - PO 12.5 mg DAILY REANNA Administration Tamsulosin HCl 0.4 mg 07/26/19 16:00 07/27/19 09:41 Flomax - PO 0.4 mg DAILY@0830 REANNA Administration Ursodiol 300 mg 07/25/19 20:00 07/27/19 09:39 Actigal - PO 300 mg BID@0800,2000 REANNA Administration ASSESSMENT/PLAN: 79 year-old female with a PMH significant for primary biliary cholangitis, essential tremors, Sjogrens, RA, and COPD. Admitted s/p fall x 3 weeks ago with left hip pain and progressive weakness. Left hip pain s/p fall x 3 weeks --all imaging negative for fracture/acute process --pain presently well-managed with Tylenol Primary biliary cholangitis Dilated CBD Dilated pancreatic duct --follows with Dr. Ramos Loja, [facility], ; FAX [phone] --discussed case with Dr. Loja; bilirubin and transaminase levels are at about same levels as seen on last bloodwork at his office 06/08/19 --US here shows CBD 11mm; per Dr. Loja, most recent imaging at [facility] was 10cm , no significant change --US here shows dilated pancreatic duct; per Dr. Loja, this is a new finding --MRCP today: pancreatic duct minimally dilated 3mm in the body and 2mm in the tail; proximal CBC dilated 1.1cm, mid and distal CBD normal caliber for stated age; faxed to Dr. Loja --continue ursodiol, hydroxyzine, cholestyramine Urinary retention --lewis in place --strict I&Os --continue Flomax --urology consult --renal function stable, monitor closely Retained stool, resolved --continue miralax; pericolace Hypokalemia --repleted Essential tremors --on no medication Sjogrens --not on meds Rheumatoid arthritis --not on meds COPD --stable, not on meds FEN Fluids: PO intake adequate Electrolytes: replete as indicated Nutrition: regular diet; Ensure Enlive BID DVT prophylaxis: subq heparin Physical therapy Dispo: continues to require inpatient care. Full code. Visit type - Emergency Visit Emergency Visit: Yes ED Registration Date: 07/23/19 Care time: The patient presented to the Emergency Department on the above date and was hospitalized for further evaluation of their emergent condition. - New Patient This patient is new to me today: No - Critical Care Critical Care patient: No
[2019-07-27] MEDS ORDERED: POTASSIUM CHLORIDE TABS 20 MEQ TABLET.ER (FP) PO ONE (13:30)
[2019-07-27] MEDS: clonazePAM 0.5 MG TABLET PO PRN (21:12)
[2019-07-27] MEDS: ATORVASTATIN CA 10 MG TABLET (FP) PO SCH (21:12)
[2019-07-27] MEDS: SENNOSIDES/DOCUSATE COMBO (SENNA PLUS) TABLET (UD) PO SCH (21:12)
[2019-07-28] MEDS: URSODIOL 300 MG CAPSULE PO SCH ×2 (08:05→21:25)
[2019-07-28 08:26] LABS: HEMATOCRIT 31.1 % (32.4-45.2); HEMOGLOBIN 10.8 GM/dl (10.7-15.3); MCHC 34.8 g/dl (32.0-36.0); MEAN CELL VOLUME 88.9 fl (80-96); MEAN PLT VOLUME 8.9 fl (7.5-11.1); PLATELET COUNT 249 K/MM3 (134-434); RDW 15.2 % (11.6-15.6); WHITE BLOOD COUNT 8.5 K/mm3 (4.0-10.8)
[2019-07-28] MEDS: TAMSULOSIN HCL 0.4 MG CAP PO SCH (08:35)
[2019-07-28 08:57] LABS: ALBUMIN 2.5 g/dl (3.4-5.0); BILIRUBIN,TOTAL 3.8 mg/dl (0.2-1); CALCIUM 8.2 mg/dl (8.5-10); CREATININE 0.5 mg/dl (0.55-1.3); MAGNESIUM 2.1 mg/dL (1.8-2.4); PHOSPHOROUS 2.8 mg/dl (2.5-4.9); POTASSIUM 3.7 mmol/L (3.5-5.1); TOT PROT 6.2 g/dl (6.4-8.2)
[2019-07-28] MEDS ORDERED: PT OWN MED DRAWER 7, Y5N ONE ×2 (09:32→21:21)
[2019-07-28 09:39] LABS: PLATELET ESTIMATE ADEQUATE
[2019-07-28] MEDS: CHOLESTYRAMINE/ASPARTAME 4 GM PACKET PO SCH ×2 (09:43→21:25)
[2019-07-28] MEDS: SERTRALINE HCL 25 MG TABLET (FP) PO SCH (09:43)
[2019-07-28] MEDS: HEPARIN NA (PORCINE) 5,000 UNITS/ML 1ML VIAL SQ SCH ×2 (09:44→21:25)
[2019-07-28] MEDS: POLYETHYLENE GLYCOL 3350 119 GM BTL PO SCH ×2 (09:45→21:26)
[2019-07-28] MEDS: hydrOXYzine HCL 25 MG TABLET (FP) PO SCH ×2 (09:45→21:25)
[2019-07-28] MEDS: SENNOSIDES/DOCUSATE COMBO (SENNA PLUS) TABLET (UD) PO SCH (21:25)
[2019-07-28] MEDS: ATORVASTATIN CA 10 MG TABLET (FP) PO SCH (21:25)
[2019-07-29 06:46] VITALS: BP 130/62; PULSE 76; TEMP 97.9
[2019-07-29] MEDS: URSODIOL 300 MG CAPSULE PO SCH (08:05)
[2019-07-29] MEDS: TAMSULOSIN HCL 0.4 MG CAP PO SCH (08:40)
[2019-07-29] MEDS ORDERED: PT OWN MED DRAWER 7, Y5N ONE (09:02)
--- NOTE | 2019-07-29 09:23 | DS ---
Physical Exam: SUBJECTIVE: Patient seen and examined OBJECTIVE: Vital Signs Period Temp Pulse Resp BP Sys/Og Pulse Ox Last 24 Hr 97.8 F-98.3 F 73-83 16-19 108-130/46-66 94-99 PHYSICAL EXAM GENERAL: The patient is awake, alert, and fully oriented, in no acute distress. HEAD: Normal with no signs of trauma. EYES: PERRL, extraocular movements intact, sclera anicteric, conjunctiva clear. ENT: Ears normal, nares patent, oropharynx clear without exudates, moist mucous membranes. NECK: Trachea midline, full range of motion, supple. LUNGS: Breath sounds equal, clear to auscultation bilaterally, no wheezes, no crackles, no accessory muscle use. HEART: Regular rate and rhythm, S1, S2 without murmur, rub or gallop. ABDOMEN: Soft, nontender, nondistended, normoactive bowel sounds, no guarding, no rebound, no hepatosplenomegaly, no masses. EXTREMITIES: 2+ pulses, warm, well-perfused, no edema. NEUROLOGICAL: Cranial nerves II through XII grossly intact. Normal speech, gait not observed. PSYCH: Normal mood, normal affect. SKIN: Warm, dry, normal turgor, no rashes or lesions noted. LABS Laboratory Results - last 24 hr 07/28/19 07:09 Neutrophils % (Manual) 86.0 H Lymphocytes % (Manual) 9.0 Monocytes % (Manual) 5 Platelet Estimate Adequate HOSPITAL COURSE: Date of Admission:07/23/19 Date of Discharge: 07/29/19 Minutes to complete discharge: 35 Discharge Summary Reason For Visit: FAILURE TO THIRVE Current Active Problems COPD (chronic obstructive pulmonary disease) (Acute) Essential tremor (Acute) Failure to thrive (Acute) Hematoma of scalp (Acute) Left hip pain (Acute) Primary biliary cholangitis (Acute) Rheumatoid arteritis (Acute) Sjogrens syndrome (Acute) Status post fall (Acute) Unable to walk (Acute) Condition: Improved - Instructions Referrals: Himanshu Song MD [Primary Care Provider] - [facility] - Home Medications Comprehensive Discharge Medication List: Ambulatory Orders Ursodiol [Actigal -] 300 mg PO BID 01/18/12 Alendronate Sodium [Binosto] 70 mg PO 07/25/19 Atorvastatin Ca [Lipitor] 10 mg PO HS 07/25/19 Calcium 250Mg/Vit-D 125 Units [Oscal 250 mg+D -] 1,250 combo PO DAILY 07/25/19 Cholestyramine (with Sugar) [Questran Packet] 4 gm PO BID 07/25/19 Sertraline HCl [Zoloft -] 12.5 mg PO DAILY 07/25/19 Triamcinolone 0.1% Ointment [Aristocort 0.1% Ointment -] 1 applic TP BID clonazePAM [Klonopin -] 0.5 mg PO BID PRN 07/25/19 hydrOXYzine HCL [Atarax -] 25 mg PO BID 07/25/19 Sennosides/Docusate Sodium [Pericolace -] 1 tablet PO HS tablet 07/29/19 Tamsulosin HCl [Flomax -] 0.4 mg PO DAILY@0830 cap.er.24h 07/29/19 This patient is new to me today: No Emergency Visit: Yes ED Registration Date: 07/23/19 Care time: The patient presented to the Emergency Department on the above date and was hospitalized for further evaluation of their emergent condition. Critical Care patient: No - Discharge Referral Referred to [facility] No
--- NOTE | 2019-07-29 09:23 | PN ---
Physical Exam: SUBJECTIVE: Patient seen and examined OBJECTIVE: Vital Signs Period Temp Pulse Resp BP Sys/Og Pulse Ox Last 24 Hr 97.8 F-98.3 F 73-83 16-19 108-130/46-66 94-99 GENERAL: The patient is awake, alert, and fully oriented, in no acute distress. HEAD: Normal with no signs of trauma. EYES: PERRL, extraocular movements intact, sclera anicteric, conjunctiva clear. No ptosis. ENT: Ears normal, nares patent, oropharynx clear without exudates, moist mucous membranes. NECK: Trachea midline, full range of motion, supple. LUNGS: Breath sounds equal, clear to auscultation bilaterally, no wheezes, no crackles, no accessory muscle use. HEART: Regular rate and rhythm, S1, S2 without murmur, rub or gallop. ABDOMEN: Soft, nontender, nondistended, normoactive bowel sounds, no guarding, no rebound, no hepatosplenomegaly, no masses. EXTREMITIES: 2+ pulses, warm, well-perfused, no edema. NEUROLOGICAL: Cranial nerves II through XII grossly intact. Normal speech, gait not observed. PSYCH: Normal mood, normal affect. SKIN: Warm, dry, normal turgor, no rashes or lesions noted Laboratory Results - last 24 hr 07/28/19 07:09 Neutrophils % (Manual) 86.0 H Lymphocytes % (Manual) 9.0 Monocytes % (Manual) 5 Platelet Estimate Adequate Active Medications Generic Name Dose Route Start Last Admin Trade Name Freq PRN Reason Stop Dose Admin Acetaminophen 650 mg 07/23/19 21:01 07/25/19 01:02 Tylenol - PO 650 mg Q4H PRN Administration PAIN Atorvastatin Calcium 10 mg 07/25/19 22:00 07/28/19 21:25 Lipitor - PO 10 mg HS REANNA Administration Cholestyramine Resin 4 gm 07/25/19 22:00 07/28/19 21:25 Questran Light Packet - PO 4 gm BID REANNA Administration Clonazepam 0.5 mg 07/25/19 18:47 07/27/19 21:12 Klonopin - PO 0.5 mg BID PRN Administration TREMORS Heparin Sodium (Porcine) 5,000 unit 07/23/19 22:00 07/28/19 21:25 Heparin - SQ 5,000 unit BID REANNA Administration Hydroxyzine HCl 25 mg 07/25/19 22:00 07/28/19 21:25 Atarax - PO 25 mg BID REANNA Administration Polyethylene Glycol 17 gm 07/25/19 10:15 07/28/19 21:26 Miralax (For Daily Use) - PO Not Given BID REANNA Senna/Docusate Sodium 1 tablet 07/26/19 22:00 07/28/19 21:25 Pericolace - PO 1 tablet HS REANNA Administration Sertraline HCl 12.5 mg 07/26/19 10:00 07/28/19 09:43 Zoloft - PO 12.5 mg DAILY REANNA Administration Tamsulosin HCl 0.4 mg 07/26/19 16:00 07/28/19 08:35 Flomax - PO 0.4 mg DAILY@0830 REANNA Administration Ursodiol 300 mg 07/25/19 20:00 07/28/19 21:25 Actigal - PO 300 mg BID@0800,2000 REANNA Administration ASSESSMENT/PLAN:
--- NOTE | 2019-07-29 09:24 | DS ---
Physical Exam: SUBJECTIVE: Patient seen and examined OBJECTIVE: Vital Signs Period Temp Pulse Resp BP Sys/Og Pulse Ox Last 24 Hr 97.8 F-98.3 F 73-83 16-19 108-130/46-66 94-99 PHYSICAL EXAM GENERAL: The patient is awake, alert, and fully oriented, in no acute distress. HEAD: Resolving ecchymosis left forehead LUNGS: Breath sounds equal, clear to auscultation bilaterally, no wheezes, no crackles, no accessory muscle use. HEART: Regular rate and rhythm, S1, S2 ABDOMEN: Soft, not tender, mildly distended EXTREMITIES: 2+ pulses, warm, well-perfused, no edema. NEUROLOGICAL: Cranial nerves II through XII grossly intact. Normal speech, gait not observed. LABS CBCD WBC 8.5 K/mm3 (4.0-10.8) 07/28/19 07:09 RBC 3.50 M/mm3 (3.60-5.2) L 07/28/19 07:09 Hgb 10.8 GM/dl (10.7-15.3) 07/28/19 07:09 Hct 31.1 % (32.4-45.2) L 07/28/19 07:09 MCV 88.9 fl (80-96) 07/28/19 07:09 MCHC 34.8 g/dl (32.0-36.0) 07/28/19 07:09 RDW 15.2 % (11.6-15.6) 07/28/19 07:09 Plt Count 249 K/MM3 (134-434) 07/28/19 07:09 MPV 8.9 fl (7.5-11.1) 07/28/19 07:09 CMP Sodium 135 mmol/L (136-145) L 07/28/19 07:09 Potassium 3.7 mmol/L (3.5-5.1) 07/28/19 07:09 Chloride 102 mmol/L (98-107) 07/28/19 07:09 Carbon Dioxide 26 mmol/L (21-32) 07/28/19 07:09 Anion Gap 7 MMOL/L (8-16) L 07/28/19 07:09 BUN 18.0 mg/dl (7-18) 07/28/19 07:09 Creatinine 0.5 mg/dl (0.55-1.3) L 07/28/19 07:09 Calcium 8.2 mg/dl (8.5-10) L 07/28/19 07:09 Total Bilirubin 3.8 mg/dl (0.2-1) H 07/28/19 07:09 AST 100 U/L (15-37) H 07/28/19 07:09 ALT 89 U/L (13-61) H 07/28/19 07:09 Alkaline Phosphatase 989 U/L (45-117) H D 07/28/19 07:09 Total Protein 6.2 g/dl (6.4-8.2) L 07/28/19 07:09 Albumin 2.5 g/dl (3.4-5.0) L 07/28/19 07:09 HOSPITAL COURSE: Date of Admission:07/23/19 Date of Discharge: 07/29/19 Pre hospital course 79 year-old female with PMH of RA, COPD, primary biliary cholangitis, Essential tremors, Sjogrens syndrome arrived to ED with complain of progressive weakness, pain to left hip radiating to left lower extremity pain 10. Pain and weakness started three weeks ago post fall. Patient fell at home did not seek medical care at time, now in ED due to progressive weakness and difficulty walking. Patient noted with contusion on left side of forehead, and orbital area. Patient denies headache, dizziness, sob/cp, denies change in vision. No acute N/ v, heartburn, constipation, diarrhea noted. ER course (1) in ED given Morphine x1 (2) lewis inserted, c/o retention, UA negative, follow urine culture (3) Head Ct, left hip, lumbar, left knee/hip all scans negative Subsequent hospital course 79 year-old female with a PMH significant for primary biliary cholangitis, essential tremors, Sjogrens, RA, and COPD. Admitted s/p fall x 3 weeks ago with left hip pain and progressive weakness. Left hip pain s/p fall x 3 weeks --all imaging negative for fracture/acute process --pain presently well-managed with Tylenol Primary biliary cholangitis Dilated CBD Dilated pancreatic duct --follows with Dr. Ramos Loja, [facility], [phone]; FAX [phone] --discussed case with Dr. Loja; bilirubin and transaminase levels are at about same levels as seen on last bloodwork at his office 06/08/19 --US here showed CBD 11mm; per Dr. Loja, most recent imaging at [facility] was 10cm, no significant change --US here showed dilated pancreatic duct which was a new finding; MRCP done which showed pancreatic duct minimally dilated 3mm in the body and 2mm in the tail; proximal CBC dilated 1.1cm, mid and distal CBD normal caliber for stated age; faxed to Dr. Loja; patient to follow up as outpatient --continued ursodiol, hydroxyzine, cholestyramine Urinary retention Atonic bladder --failed voiding trial and discharged with lewis --started Flomax --renal function remained stable --seen and evaluated by urology, will need another voiding trial at [facility] when stronger; outpatient followup Retained stool, resolved --continued miralax; pericolace Hypokalemia --repleted Essential tremors --on no medication Sjogrens --not on meds Rheumatoid arthritis --not on meds COPD --stable, not on meds Minutes to complete discharge: 35 Discharge Summary Reason For Visit: FAILURE TO THIRVE Current Active Problems COPD (chronic obstructive pulmonary disease) (Acute) Essential tremor (Acute) Failure to thrive (Acute) Hematoma of scalp (Acute) Left hip pain (Acute) Primary biliary cholangitis (Acute) Rheumatoid arteritis (Acute) Sjogrens syndrome (Acute) Status post fall (Acute) Unable to walk (Acute) Condition: Improved - Instructions Diet, Activity, Other Instructions: Patient is being discharged to your facility with a lewis catheter due to an atonic bladder. She was seen and evaluated by a urologist, Dr. Brito ). Before patient is discharged, after she regains her strength, collect urine for culture and sensitivity BEFORE pulling the lewis. Cover her with appropriate antibiotics if indicated. Then pull the lewis for a voiding trial. Referrals: Himanshu Song MD [Primary Care Provider] - [facility]position: [facility] - Home Medications Comprehensive Discharge Medication List: Ambulatory Orders Ursodiol [Actigal -] 300 mg PO BID 01/18/12 Alendronate Sodium [Binosto] 70 mg PO 07/25/19 Atorvastatin Ca [Lipitor] 10 mg PO HS 07/25/19 Calcium 250Mg/Vit-D 125 Units [Oscal 250 mg+D -] 1,250 combo PO DAILY 07/25/19 Cholestyramine (with Sugar) [Questran Packet] 4 gm PO BID 07/25/19 Sertraline HCl [Zoloft -] 12.5 mg PO DAILY 07/25/19 Triamcinolone 0.1% Ointment [Aristocort 0.1% Ointment -] 1 applic TP BID clonazePAM [Klonopin -] 0.5 mg PO BID PRN 07/25/19 hydrOXYzine HCL [Atarax -] 25 mg PO BID 07/25/19 Sennosides/Docusate Sodium [Pericolace -] 1 tablet PO HS tablet 07/29/19 Tamsulosin HCl [Flomax -] 0.4 mg PO DAILY@0830 cap.er.24h 07/29/19 This patient is new to me today: No Emergency Visit: Yes ED Registration Date: 07/23/19 Care time: The patient presented to the Emergency Department on the above date and was hospitalized for further evaluation of their emergent condition. Critical Care patient: No - Discharge Referral Referred to [facility] No
[2019-07-29] MEDS: SERTRALINE HCL 25 MG TABLET (FP) PO SCH (09:49)
[2019-07-29] MEDS: hydrOXYzine HCL 25 MG TABLET (FP) PO SCH (09:49)
[2019-07-29] MEDS: CHOLESTYRAMINE/ASPARTAME 4 GM PACKET PO SCH (09:49)
[2019-07-29] MEDS: HEPARIN NA (PORCINE) 5,000 UNITS/ML 1ML VIAL SQ SCH (09:50)
[2019-07-29] MEDS: POLYETHYLENE GLYCOL 3350 119 GM BTL PO SCH (09:50)
== END 2019-07-29 11:45 | DRG 641 ==
LOC: FER 12:04 → FM/S 17:34
PROVIDERS: ADMIT Internal Medicine; ATTEND Nurse Practitioner Acute Care
DX: R62.7 Adult failure to thrive (principal); R64 Cachexia; Z68.1 Body mass index [BMI] 19.9 or less, adult; I10 Essential (primary) hypertension; M25.552 Pain in left hip; K74.3 Primary biliary cirrhosis; M35.00 Sjogren syndrome, unspecified; J44.9 Chronic obstructive pulmonary disease, unspecified; R33.9 Retention of urine, unspecified; E87.6 Hypokalemia; S00.03XA Contusion of scalp, initial encounter; W19.XXXA Unspecified fall, initial encounter; Y93.9 Activity, unspecified; Y92.89 Other specified places as the place of occurrence of the external cause; Y99.9 Unspecified external cause status; G25.0 Essential tremor; M06.9 Rheumatoid arthritis, unspecified; R26.2 Difficulty in walking, not elsewhere classified
CPT/HCPCS: 36415; 70450-TC; 72100-TC-FY; 73523-TC-FY; 73562-TC-LT-FY; 73700-TC-RT; 74019-TC-FY; 74182-TC; 76705-TC; 76775-TC; 76856-TC; 80048; 80053; 80076; 81003; 81015; 82550; 83735; 84100; 84484; 85025; 85027; 87086; 87186; 93005; 97116-GP; 97161-GP; 99284-25; A9579; J1644